=== PATIENT | male | born 1985 | race Caucasian/White ===

== ENCOUNTER 2018-05-15 11:31 | Observation (INO) ==
--- NOTE | 2018-05-15 11:51 | Emergency Department Note ---
ED Disposition Clinical Impression: Acute appendicitis Qualifiers: Acute appendicitis type: with localized peritonitis Appendicitis gangrene presence: without gangrene Appendicitis perforation presence: without perforation Appendicitis abscess presence: without abscess Qualified Code(s): K35.30 - Acute appendicitis with localized peritonitis, without perforation or gangrene Disposition: Still a Patient Condition on Discharge: Good Referrals: Leonel Day [Primary Care Provider] - - Critical Care Critical Care Time: No Attestation: On , the high probability of a clinically significant, sudden or life threatening deterioration of the following system(s) required my full and direct attention, intervention and personal management. The time I documented below is in addition to time spent performing reported procedures but includes the following listed in this critical care notation. Medical Decision Making - Dharmesh Inquiry Pt receiving controlled substance: No (Declines pain medication) Vital Signs: 05/15/18 11:46 05/15/18 12:16 05/15/18 14:08 Temperature 98.4 F 99.2 F Temperature Source Oral Oral Pulse Rate [Right Brachial] 82 77 82 Respiratory Rate 16 16 18 Blood Pressure [Right Arm] 139/98 H 143/91 H 140/86 Blood Pressure Mean [Right Arm] 111 108 104 Blood Pressure Source [Right Arm] Automatic Cuff Automatic Cuff Automatic Cuff Blood Pressure Position [Right Arm] Sitting Sitting Sitting 02 Sat by Pulse Oximetry 96 95 99 Oxygen Delivery Method Room Air Room Air Room Air - Lab Data Lab Results 05/15/18 12:00: WBC 10.8, RBC 4.94, Hgb 15.0, Hct 44.8, MCV 90.6, MCH 30.4, MCHC 33.6, RDW 12.5, Plt Count 331, MPV 6.7 L, Neut % (Auto) 74.4, Lymph % (Auto) 17.5, [place] % (Auto) 6.0, Eos % (Auto) 1.7, Baso % (Auto) 0.4, Neut # (Auto) 8.0 H, Lymph # (Auto) 1.9, [place] # (Auto) 0.7, Eos # (Auto) 0.2, Baso # (Auto) 0.0 05/15/18 12:00: Sodium 138, Potassium 3.9, Chloride 102, Carbon Dioxide 30, Anion Gap 9.9, BUN 11, Creatinine 1.05, Estimated Creat Clear 117, Estimated GFR 80, Est GFR ( Amer) 97, Glucose 99, Calcium 8.9, Total Bilirubin 1.3 H, AST 18, ALT 31, Alkaline Phosphatase 65, Total Protein 8.1, Albumin 4.0, Globulin 4.1 H, Albumin/Globulin Ratio 1.0 L, Lipase 81 05/15/18 13:44: Urine Color Yellow, Urine Appearance Sl cloudy, Urine pH 6.5, Ur Specific [place] 1.010, Urine Protein Negative, Urine Glucose (UA) Negative, Urine Ketones Negative, Urine Blood Trace-l, Urine Nitrate Negative, Urine Bilirubin Negative, Urine Urobilinogen 0.2, Ur Leukocyte Esterase Negative, Urine RBC Occasional, Urine WBC Occasional, Ur Squamous Epith Cells None, Urine Bacteria Trace Result diagrams: 05/15/18 12:00 05/15/18 12:00 Orders (Tests/Meds): ED MEDICATIONS Generic Name Dose Route Start Last Admin Trade Name Freq PRN Reason Stop Dose Admin Sodium Chloride 10 ml 05/15/18 11:57 Saline Flush 10ml Syringe IV 06/14/18 11:56 NEEDED PRN Maintain IV Site Discontinued Medications Generic Name Dose Route Start Last Admin Trade Name Freq PRN Reason Stop Dose Admin Iopamidol 75 ml 05/15/18 12:36 05/15/18 12:36 [id number]; 75ml Vial IV 05/15/18 12:37 75 ml ONCE ONE Administration Protocol Sodium Chloride 1,000 ml 05/15/18 11:56 05/15/18 12:15 Sod Chlor 0.9% 1000ml Bag IV 05/15/18 11:57 1,000 ml BOLUS ONE Administration ORDERS Category Date Time Status Urinalysis and Microscopic Stat Lab 05/15/18 13:44 Ordered - CT Data CT Scan: Abdomen, Pelvis Time Received: 13:[address] Reviewed: Yes: I have viewed the radiologist's interpretation Findings Narrative: IMPRESSION: The findings are consistent with acute appendicitis. No evidence of abscess or perforation. Significant findings called to Haley novak nurse in the ER as Dr. Parker was unavailable to come to the bone on 05/15/2018 1:09 PM. Dictated By: David Simons MD Signed By: <Electronically signed by David Simons MD in OV> 05/15/18 1310 - Physician Consults Physician Consulted: Allran Time: 13:35 Reason -: Surgical Eval/Care Comment/Response: In surgery. He will call when surgery finished. Additional Consult: Billy Time: 14:24 Reason -: Surgical Eval/Care Comment/Response: Present, speaking with patient General Adult HPI - General Chief complaint: Abdominal Pain Stated complaint: R ABD AND R SIDE PAIN Time Seen by Provider: 05/15/18 11:51 Mode of Arrival: Ambulatory Limitations: No Limitations Description of Symptoms (Recalled from ER Triage Doc. by RN): Lower abdominal pain - History of Present Illness HPI narrative: Abdominal pain starting Monday 3 days ago. For the first couple of days it was periumbilical and infraumbilical and now has moved more to the right lower quadrant. Appetite is okay. Slight nausea at night, but no vomiting, no diarrhea, no constipation. Has a constant "constipated feeling", but has been able to have bowel movements without difficulty and it does not relieve his symptoms. Increased pain in his abdomen when he urinates, but no burning dysuria or hematuria. No fever documented, but felt slightly warm last night. Slight low back pain today. - Related Data Home Medications Medication Instructions Recorded Confirmed Bupropion HBr [Aplenzin] 522 mg PO DAILY MDD 522 mg 05/15/18 05/15/18 Allergies Allergy/AdvReac Type Severity Reaction Status Date / Time penicillin V Allergy Intermediate Verified 05/15/18 11:50 [facility] History - Hepatitis A Screen Drug use history?: No High risk sexual behaviors?: No History of sexually transmitted infection?: No Currently employed?: No Childcare worker?: No Do you have indoor plumbing?: Yes Do you have electricity?: Yes Attestation statement:: This patient has been screened for Hepatitis A risk factors. I have reviewed the patient's past medical history: Yes ROS Obtained: Yes All systems reviewed & no additional complaints - Constitutional Constitutional: Reports as per HPI, Denies poor appetite - Cardiovascular Cardiovascular: Denies chest pain - Gastrointestinal Gastrointestingal: Reports: abdominal pain, nausea. Denies: constipation, diarrhea, vomiting - Genitourinary Male Genitourinary: Denies difficulty urinating, Denies hematuria Physical Exam - General General appearance: alert, in no apparent distress - Head Head exam: atraumatic, normocephalic - Eye Eye exam: Present: normal appearance, PERRL, EOMI - ENT ENT exam: Present: mucous membranes moist - Neck Neck exam: Present: normal inspection, trachea midline - Chest Chest inspection: Present: normal inspection, symmetric chest wall rise - Respiratory Respiratory exam: Present: normal lung sounds bilaterally. Absent: respiratory distress - Cardiovascular Cardiovascular exam: Present: regular rate, normal rhythm - Abdominal Exam Abdominal exam: Present: soft, tenderness. Absent: distention, guarding, rebound, rigidity Abdominal tenderness: Present: RLQ, LLQ, suprapubic Comment: Most tender in the right lower quadrant - Back Exam Back exam: Absent: CVA tenderness (R), CVA tenderness (L) - Neurological Exam Neurological exam: Present: alert, oriented X3 - Psychiatric Psychiatric exam: Present: normal affect, normal mood - Skin Skin exam: Present: warm, dry
[2018-05-15 12:17] LABS: Basophils % 0.4 % (0.1-2.0); Eosinophils # 0.2 K/mm3 (0.0-0.4); Eosinophils % 1.7 % (0.1-12.0); Hematocrit 44.8 % (42.0-52.0); Lymphocytes # 1.9 K/mm3 (0.7-4.5); Lymphocytes % 17.5 % (10-50); Mean Corpuscular HGB Conc 33.6 g/dL (31.8-35.4); Mean Corpuscular Hemoglobin 30.4 pg (27.0-31.2); Mean Corpuscular Volume 90.6 fl (80-94); Mean Platelet Volume 6.7 fl (7.4-10.4); Monocytes # 0.7 K/mm3 (0.1-1.0); Neutrophils % 74.4 % (37.0-80.0); Platelet Count 331 K/mm3 (142-424); Red Blood Count 4.94 M/mm3 (4.60-6.20); Red Cell Distribution Width 12.5 % (11.5-17.5); White Blood Count 10.8 K/mm3 (4.8-10.8)
[2018-05-15 12:29] LABS: Anion Gap 9.9 mEq/L (5-15); Bilirubin,Total 1.3 mg/dL (0.2-1.0); Calcium 8.9 mg/dL (8.5-10.1); Globulin 4.1 gm/dl (1.3-3.2); Potassium 3.9 mmoL/L (3.5-5.1); Total Protein,Serum 8.1 gm/dL (6.4-8.2)
[2018-05-15 13:48] LABS: Microscopic, Urine URINE MICROSCOPIC (MICROSCOPIC)
[2018-05-15 13:54] LABS: Appearance,Urine SL CLOUDY (Clear); Bilirubin,Urine Negative (Negative); Blood, Urine TRACE-L (Negative); Color,Urine YELLOW (Yellow); Glucose,Urine (UA) Negative (Negative); Ketones,Urine Negative (Negative); Leukocyte Esterase,Urine Negative (Negative); PH,Urine 6.5 (5.0-8.5); Protein,Urine Negative (Negative); Urobilinogen,Urine 0.2 EU/dl (0.2)
[2018-05-15 14:09] LABS: Bacteria,Urine Trace /lpf; RBC,Urine Occasional #/hpf (0-3); WBC,Urine Occasional #/hpf (0-3)
--- NOTE | 2018-05-15 14:30 | History & Physical Report ---
HPI HPI: Abdominal pain Patient is a pleasant healthy 33-year-old white male. He states that on Monday evening 05/12/17, he began developing mid abdominal pain. This was somewhat periumbilical. He felt that this was gas pains. This persisted for a couple of days and he had taken some Gas-X. He also felt some pressure like he had to defecate. He had done an Internet search on appendicitis and his symptoms became more consistent with appendicitis with migration of abdominal pain to the right lower quadrant today. Therefore he presented to the emergency department where he was seen and evaluated. He had a normal white blood cell count. He underwent CT scan which revealed findings of appendicitis and surgical consultation was obtained. [facility] History I have reviewed the patient's past medical history: Yes Have you ever received a pneumonia vaccine?: No Have you received a flu vaccine this season?: Yes Review of Systems - Review of Systems Review of systems:: pertinent systems reviewed and negative unless documented below Meds Home Medications Medication Instructions Recorded Confirmed Type Bupropion HBr [Aplenzin] 522 mg PO DAILY MDD 522 mg 05/15/18 05/15/18 History Allergies Allergy/AdvReac Type Severity Reaction Status Date / Time penicillin V Allergy Intermediate Verified 05/15/18 11:50 Exam Vital signs and Labs for Last 24 Hours: Temp Pulse Resp BP Pulse Ox 99.2 F 82 18 140/86 99 05/15/18 14:08 05/15/18 14:08 05/15/18 14:08 05/15/18 14:08 05/15/18 14:08 Laboratory Results - last 24 hr 05/15/18 12:00: WBC 10.8, RBC 4.94, Hgb 15.0, Hct 44.8, MCV 90.6, MCH 30.4, MCHC 33.6, RDW 12.5, Plt Count 331, MPV 6.7 L, Neut % (Auto) 74.4, Lymph % (Auto) 17.5, [place] % (Auto) 6.0, Eos % (Auto) 1.7, Baso % (Auto) 0.4, Neut # (Auto) 8.0 H, Lymph # (Auto) 1.9, [place] # (Auto) 0.7, Eos # (Auto) 0.2, Baso # (Auto) 0.0 05/15/18 12:00: Sodium 138, Potassium 3.9, Chloride 102, Carbon Dioxide 30, Anion Gap 9.9, BUN 11, Creatinine 1.05, Estimated Creat Clear 117, Estimated GFR 80, Est GFR ( Amer) 97, Glucose 99, Calcium 8.9, Total Bilirubin 1.3 H, AST 18, ALT 31, Alkaline Phosphatase 65, Total Protein 8.1, Albumin 4.0, Globulin 4.1 H, Albumin/Globulin Ratio 1.0 L, Lipase 81 05/15/18 13:44: Urine Color Yellow, Urine Appearance Sl cloudy, Urine pH 6.5, Ur Specific [place] 1.010, Urine Protein Negative, Urine Glucose (UA) Negative, Urine Ketones Negative, Urine Blood Trace-l, Urine Nitrate Negative, Urine Bilirubin Negative, Urine Urobilinogen 0.2, Ur Leukocyte Esterase Negative, Urine RBC Occasional, Urine WBC Occasional, Ur Squamous Epith Cells None, Urine Bacteria Trace I & O for Last 24 hours: Intake & Output 05/13/18 05/14/18 05/15/18 05/16/18 11:59 11:59 11:59 11:59 Weight 185 lb - *Routine HEENT Exam Head: Present: normocephalic Eye: Present: EOMI, PERRL ENT: Present: mucous membranes moist - *Routine Neck Exam Present: supple. Absent: lymphadenopathy - *Routine Respiratory Exam Present: CTA bilaterally - *Routine Cardiovascular Exam Present: RRR - *Routine Abdominal Exam Present: soft, normoactive bowel sounds, tenderness Comments: Mild tenderness in the right lower quadrant without guarding or rebound. - *Routine Extremities Exam Absent: cyanosis, clubbing, edema - *Routine Skin Exam Present: warm. Absent: rash - *Routine Neurological Exam Present: alert, oriented X3 - Detailed Eye Exam Eyelids: Left normal inspection Results - Results Lab Results Last 24 Hours:: Laboratory Results - last 24 hr 05/15/18 12:00: WBC 10.8, RBC 4.94, Hgb 15.0, Hct 44.8, MCV 90.6, MCH 30.4, MCHC 33.6, RDW 12.5, Plt Count 331, MPV 6.7 L, Neut % (Auto) 74.4, Lymph % (Auto) 17.5, [place] % (Auto) 6.0, Eos % (Auto) 1.7, Baso % (Auto) 0.4, Neut # (Auto) 8.0 H, Lymph # (Auto) 1.9, [place] # (Auto) 0.7, Eos # (Auto) 0.2, Baso # (Auto) 0.0 05/15/18 12:00: Sodium 138, Potassium 3.9, Chloride 102, Carbon Dioxide 30, Anion Gap 9.9, BUN 11, Creatinine 1.05, Estimated Creat Clear 117, Estimated GFR 80, Est GFR ( Amer) 97, Glucose 99, Calcium 8.9, Total Bilirubin 1.3 H, AST 18, ALT 31, Alkaline Phosphatase 65, Total Protein 8.1, Albumin 4.0, Globulin 4.1 H, Albumin/Globulin Ratio 1.0 L, Lipase 81 05/15/18 13:44: Urine Color Yellow, Urine Appearance Sl cloudy, Urine pH 6.5, Ur Specific [place] 1.010, Urine Protein Negative, Urine Glucose (UA) Negative, Urine Ketones Negative, Urine Blood Trace-l, Urine Nitrate Negative, Urine Bilirubin Negative, Urine Urobilinogen 0.2, Ur Leukocyte Esterase Negative, Urine RBC Occasional, Urine WBC Occasional, Ur Squamous Epith Cells None, Urine Bacteria Trace Assessment and Plan - Assessment and plan all Dx Assessment and Plan for all problems:: Plan will be for laparoscopic possibly open appendectomy. Risks and nature of the proposed procedure along with expected outcome were explained. He understands and agrees to proceed.
--- NOTE | 2018-05-15 15:58 | Progress Note ---
[facility] Anesthesia Checklist - Patient Identification Patient Identification: Arm Band, Verbal (Name & ) - Structural Data Admitted From: Emergency Dept Planned Operative Procedure/s: Laparoscopic appendicitis Consent for Planned Operative Procedure(s) Verified: Yes Verified Documents: Surgical Consent, History and Physical - NPO Status Verified Time NPO: 00:00 - Additional verifications Anesthesia Reactions: No - Airway Assessment C-Spine Mobility Assessed: Yes TMJ Mobility Assessed: Yes Dentition: Good Dentition - Neurological Assessment Level of Consciousness: Awake Hx Seizures: No Numbness or tingling in extremities: No - Anesthesia Plan Anesthesia Risk discussed: Yes Anesthesia Plan: Verified ASA Class: II Anesthesia Type: General [facility] History I have reviewed the patient's past medical history: Yes Medical History: Reports:: Depression, Gastroesophageal Reflux Disease(GERD) Denies:: Seizures Have you ever received a pneumonia vaccine?: No Have you received a flu vaccine this season?: Yes Other Medical History: Denies: Blood Transfusion Reaction Other Surgeries: Yes: Other (right wrist sx)
--- NOTE | 2018-05-15 17:13 | Operative Note ---
Date of procedure: 05/15/18 Pre-op Diagnosis:: Acute appendicitis Post-op Diagnosis:: Same Procedure performed:: Laparoscopic appendectomy Surgeon:: Obinna Cervantes MD Anesthesia: REJI Estimated blood loss (mL): 15 Clinical Note:: Patient is a healthy 33-year-old white male. For several days he had what initially he described as a "stomachache". He described periumbilical pain consistent with gas pains. He had taken Gas-X. Pain became more localized to the right lower quadrant. Patient actually did an Internet search on appendicitis symptoms and his symptoms were quite consistent with that. He therefore presented to the emergency department at [facility] today. He did have a normal white blood cell count. He underwent CT scan which revealed findings of enlarged inflamed appendix consistent with acute appendicitis. Surgical consultation was obtained. Patient was seen and examined in the emergency department and arrangements were made for appendectomy. Operative findings:: Patient had a significantly acutely inflamed suppurative but nonperforated appendicitis. It was most inflamed towards the tip which was adherent to the bladder as well as a pedicle of sigmoid epiploic fat. Operative note:: Consent was obtained and patient was taken to the operating room. He was given preoperative intravenous antibiotics consisting of metronidazole and levofloxacin. In the operating room general anesthesia was induced. Yates catheter was placed. His abdomen was prepped and draped in the standard surgical fashion. Subumbilical skin incision was made and while performing abdominal wall lift Veress needle was inserted. CO2 pneumoperitoneum was achieved to 15 mmHg. A 12 mm optical trocar was inserted at the umbilicus. He was positioned in Trendelenburg with left side down. 5 mm suprapubic trocar was inserted under laparoscopic visualization and right abdominal 5 mm trocar was inserted. A 30 degree 5 mm laparoscope was inserted through the right upper abdominal trocar site. The appendix was identified and found to be thickened and inflamed. It was more significantly inflamed toward its tip which appeared to be acutely adherent to the bladder and there was a pedicle of sigmoid epiploic fat adherent to the appendix as acute inflammatory adhesions. These were taken down bluntly. Appendix was then grasped with an endoscopic Hosmer. The mesoappendix was carefully divided with LACY ultrasonic harmonic molly with care taken to coagulate the appendiceal artery in the process. There were some lateral peritoneal attachments which were incised using LACY ultrasonic harmonic molly. Dissection was carried down to the appendiceal base. The appendix was divided at its base with an endoscopic GIANLUCA linear cutting stapling device taking a small cuff of cecum. Appendix was placed within an Endo Catch retrieval device and removed from the peritoneal cavity via the umbilical trocar site which required some extension minimally of the fascial incision and skin incision for delivery of the enlarged appendix. Limited irrigation was then performed of the pericecal location and pelvis. There appeared to be good hemostasis and the staple line was intact. Trochars were removed as CO2 pneumoperitoneum was evacuated. Fascia at the umbilicus was closed with several interrupted 0 Vicryl sutures. Local anesthetic was infiltrated. Skin incisions were closed with 4-0 Monocryl in a subcuticular fashion. Steri-Strips and dressings were applied. Condition: stable Disposition: PACU Specimens:: Appendix Complications:: None immediately apparent
--- NOTE | 2018-05-15 17:15 | Progress Note ---
[facility] Anesthesia Record Part I Intake, IV Amount: 850 Estimated blood loss (mL): 10 Urine output (mL): 50 Blood Products used (#): none Blood Pressure: 149/85 SaO2: 96 Pulse Rate: 79 Respiratory Rate: 16 Temperature: 97.8 F Patient is:: Awake, Stable Stable to PACU at:: 17:12
--- NOTE | 2018-05-15 17:16 | Progress Note ---
[facility] Anesthesia Record Part II Discharge Time: 17:42 Destination: Medical Surgical Department PACU nurse assessment reviewed?: Yes Patient Condition:: Good Anesthesia Complications:: None
--- NOTE | 2018-05-16 07:37 | Pharmacy Consult Notes ---
[facility] Pharmacy VTE Monitoring - Patient Demographics Admission date: 05/15/18 Report Date: 05/16/18 Time: 07:37 Allergies/Adverse Reactions: Patient Allergies penicillin V Allergy (Intermediate, Verified 05/15/18 11:50) Height: 1.83 m Weight: 84.822 kg Patient Problems: Current Active Problems Acute appendicitis (Acute) - VTE Risk Labs: VTE Related Lab Results Hgb 15.0 g/dL (14.1-18.0) 05/15/18 12:00 Hct 44.8 % (42.0-52.0) 05/15/18 12:00 Plt Count 331 K/mm3 (142-424) 05/15/18 12:00 BUN 11 mg/dL (7-18) 05/15/18 12:00 Creatinine 1.05 mg/dL (0.70-1.30) 05/15/18 12:00 Estimated Creat Clear 117 mL/min (50-200) 05/15/18 12:00 Was VTE Risk Assessment Performed: Yes VTE Risk Level: Very Low Risk - Prophylaxis VTE Prophylaxis Ordered?: Yes Types of VTE Prophylaxis: TEDS Knee High Location of Applied Device: Bilateral Lower Extremeties - VTE Diagnosis Confirmed Treatment or plan recommended: Continue Current Treatment
--- NOTE | 2018-05-16 08:07 | Progress Note ---
Subjective Patient reports: feels better Exam Vital signs and Labs for Last 24 Hours: Temp Pulse Resp BP Pulse Ox 98.2 F 71 17 127/71 96 05/16/18 07:55 05/16/18 07:55 05/16/18 07:55 05/16/18 07:55 05/16/18 07:55 Laboratory Results - last 24 hr 05/15/18 12:00: WBC 10.8, RBC 4.94, Hgb 15.0, Hct 44.8, MCV 90.6, MCH 30.4, MCHC 33.6, RDW 12.5, Plt Count 331, MPV 6.7 L, Neut % (Auto) 74.4, Lymph % (Auto) 17.5, [place] % (Auto) 6.0, Eos % (Auto) 1.7, Baso % (Auto) 0.4, Neut # (Auto) 8.0 H, Lymph # (Auto) 1.9, [place] # (Auto) 0.7, Eos # (Auto) 0.2, Baso # (Auto) 0.0 05/15/18 12:00: Sodium 138, Potassium 3.9, Chloride 102, Carbon Dioxide 30, Anion Gap 9.9, BUN 11, Creatinine 1.05, Estimated Creat Clear 117, Estimated GFR 80, Est GFR ( Amer) 97, Glucose 99, Calcium 8.9, Total Bilirubin 1.3 H, AST 18, ALT 31, Alkaline Phosphatase 65, Total Protein 8.1, Albumin 4.0, Globulin 4.1 H, Albumin/Globulin Ratio 1.0 L, Lipase 81 05/15/18 13:44: Urine Color Yellow, Urine Appearance Sl cloudy, Urine pH 6.5, Ur Specific [place] 1.010, Urine Protein Negative, Urine Glucose (UA) Negative, Urine Ketones Negative, Urine Blood Trace-l, Urine Nitrate Negative, Urine Bilirubin Negative, Urine Urobilinogen 0.2, Ur Leukocyte Esterase Negative, Urine RBC Occasional, Urine WBC Occasional, Ur Squamous Epith Cells None, Urine Bacteria Trace I & O for Last 24 hours: Intake & Output 05/13/18 05/14/18 05/15/18 05/16/18 11:59 11:59 11:59 11:59 Intake Total 3459 / 3459 Output Total 0 / 0 Balance 3459 / 3459 Weight 185 lb 187 lb - *Routine Abdominal Exam Present: soft Comments: Dressings dry Progress Note: A&P Assessment and Plan for All Diagnoses:: Discharge home
--- NOTE | 2018-05-16 08:13 | Discharge Summary ---
General - General Admission date:: 05/15/18 Discharge date: 05/16/18 HPI HPI: Patient is a healthy 33-year-old white male. Several days prior to presentation he had developed vague mid abdominal and periumbilical pain. [place] that this was possibly gas. He tried some [id number] Gas-X. This transiently resolved. He then had migration of pain to the right lower quadrant. He had an Internet search on symptoms of pancreatitis and his symptoms were concordant with these symptoms. He had presented to [facility] emergency department yesterday afternoon. He was found to have a normal leukocytosis. He had CT scan of the abdomen and pelvis performed which revealed findings of acute appendicitis. Surgical consultation was obtained. Hospital Course Hospital Course: She was seen and examined in the arrangements were made for appendectomy. He was taken to the operating room and underwent laparoscopic appendectomy. He is found to have an acutely inflamed suppurative but nonperforated appendix. This was fully adherent somewhat to the bladder and epiploic fat of the sigmoid colon. Please see operative dictation for complete details. Postoperatively he was continued on perioperative antibiotics. He was given levofloxacin and metronidazole preoperatively. Patient was given a full liquid diet after surgery. He did have some mild nausea several hours after surgery but no vomiting. This resolved. The following morning he was feeling well and tolerating a full liquid diet. Arrangements were made for discharge home at that time. Objective Vital signs: Temp Pulse Resp BP Pulse Ox 98.2 F 71 17 127/71 96 05/16/18 07:55 05/16/18 07:55 05/16/18 07:55 05/16/18 07:55 05/16/18 07:55 no acute distress - *Routine Abdominal Exam Present: soft Comments: Dressings dry and intact - Detailed Eye Exam Eyelids: Left normal inspection Results Labs on day of discharge: Labs from last 24 hours 05/15/18 05/15/18 05/15/18 13:44 12:00 12:00 WBC 10.8 RBC 4.94 Hgb 15.0 Hct 44.8 MCV 90.6 MCH 30.4 MCHC 33.6 RDW 12.5 Plt Count 331 MPV 6.7 L Neut % (Auto) 74.4 Lymph % (Auto) 17.5 [place] % (Auto) 6.0 Eos % (Auto) 1.7 Baso % (Auto) 0.4 Neut # (Auto) 8.0 H Lymph # (Auto) 1.9 [place] # (Auto) 0.7 Eos # (Auto) 0.2 Baso # (Auto) 0.0 Sodium 138 Potassium 3.9 Chloride 102 Carbon Dioxide 30 Anion Gap 9.9 BUN 11 Creatinine 1.05 Estimated Creat Clear 117 Estimated GFR 80 Est GFR ( Amer) 97 Glucose 99 Calcium 8.9 Total Bilirubin 1.3 H AST 18 ALT 31 Alkaline Phosphatase 65 Total Protein 8.1 Albumin 4.0 Globulin 4.1 H Albumin/Globulin Ratio 1.0 L Lipase 81 Urine Color Yellow Urine Appearance Sl cloudy Urine pH 6.5 Ur Specific [place] 1.010 Urine Protein Negative Urine Glucose (UA) Negative Urine Ketones Negative Urine Blood Trace-l Urine Nitrate Negative Urine Bilirubin Negative Urine Urobilinogen 0.2 Ur Leukocyte Esterase Negative Urine RBC Occasional Urine WBC Occasional Ur Squamous Epith Cells None Urine Bacteria Trace Discharge Plan - Patient Discharge Instructions ACTIVITY: No heavy lifting DIET: advance to your usual diet Patient Instructions: DI for Appendicitis -- Adult, DI for an Appendectomy, DI for Surgical Site Infection - Follow up Plan Follow up with: Leonel Day [Primary Care Provider] - Obinna Cervantes MD [Staff Physician] - 06/04/18 Home Medications: Home Medications Medication Instructions Recorded Confirmed Type Bupropion HBr [Aplenzin] 522 mg PO DAILY MDD 522 mg 05/15/18 05/15/18 History Hydrocod/Acet 5/325 mg [[place] 1 - 2 tab PO Q6HP PRN #21 tab 05/16/18 Rx 5/325mg tablet] Prescriptions/Medication Reconciliation: New Hydrocod/Acet 5/325 mg [[place] 5/325mg tablet] 1 - 2 tab PO Q6HP PRN #21 tab PRN Reason: Moderate Pain Continue Bupropion HBr [Aplenzin] 522 mg PO DAILY MDD 522 mg
== END 2018-05-16 10:30 | disposition home or self-care (01) | DRG 343 ==
LOC: ER 11:31 → SDC 15:28 → INTOOBSV 16:08 → 2ND 16:08
PROVIDERS: ADMIT Surgery; ATTEND Surgery
CPT/HCPCS: 74177; 80053; 81001; 83690; 85025; 96365; 99284; G0378; J1956; J2405; J2710; Q9967